=== PATIENT | male | born 1995 | race Caucasian/White ===

== ENCOUNTER 2021-12-17 23:20 | Emergency (ER) | payer SELFPAY ==
[~2021-12-17] VITALS: Ht 172.7 cm; Wt 68.7 kg
[2021-12-18] MEDS ORDERED: TETANUS, DIPHTHERIA, PERTUSSIS VAC/PF 0.5ML (>10YR OLD) IM ONE (01:45)
[2021-12-18] MEDS ORDERED: HYDROCODONE/ACETAMINOPHEN 10/325MG TABLET PO ONE (01:45)
[2021-12-18] MEDS ORDERED: AMOXICILLIN/POTASSIUM CLAVULANATE 875/125MG TAB PO ONE (01:45)
[2021-12-18] MEDS ORDERED: AMOX1TAB16 MT (01:46)
[2021-12-18 02:19] VITALS: BP 140/90
== END 2021-12-18 02:00 | disposition home or self-care (01) ==
LOC: ER 23:20
DX: S91.154A Open bite of right lesser toe(s) without damage to nail, initial encounter (principal); S99.821A Other specified injuries of right foot, initial encounter; Y04.1XXA Assault by human bite, initial encounter; Y93.89 Activity, other specified; Y92.9 Unspecified place or not applicable
CPT/HCPCS: 90471; 90715; 99283